=== PATIENT | female | born 1960 | race Caucasian/White ===

== ENCOUNTER 2023-06-10 04:41 | Emergency (ER) | payer OTHER, SELFPAY ==
[2023-06-10 04:41] VITALS: BMI 23.2
[2023-06-10 04:44] VITALS: BP 134/81
--- NOTE | 2023-06-10 05:09 | ED.GENMED ---
History of Present Illness
<BRIANNE Marie - Last Filed: 06/10/23 06:01>
General
Chief Complaint: Skin Problem
Source: patient
Exam Limitations: none
Time Seen by Provider: 06/10/23 04:59
Nursing documentation reviewed up to this point in time: agreed with
Travel History
Have you had any contact with someone who has COVID-19?: No
Do you have any symptoms of coronavirus? Fever > 100 degrees, chills, cough, shortness of breath, sore throat, loss of taste or smell, muscle aches, or headache?: No
History of Present Illness
History of Present Illness:
This is a 62 year old female with PMHx of HLD who presents to the ED w/ c/o scalp irritation after having her hair dyed x2 days ago. Patient reports she had a executive chairman come to her home who dyed her hair without a patch test. She is unaware of
the name of the hair dye that was used. She did not have any irritation at the time of the dye but reports itchiness to her scalp the night of. This worsened into the next day and she reports redness her frontal and posterior scalp. She is still
have itchiness and reports she has developed a headache. She also reports some left eye swelling. She denies SOB, CP, NVD, blurry vision or vision changes. Her only known allergies are penicillins and sulfa drugs. She denies any known allergies to
hair dye and reports having her hair dyed in the past without any problems.
Past History
<BRIANNE Marie - Last Filed: 06/10/23 06:01>
Past History
ED Past Medical History: None
Social History
Tobacco: Non-smoker
Family History
Family History: Negative Early CAD or CAD
Review of Systems
<BRIANNE Marie - Last Filed: 06/10/23 06:01>
Review of Systems
Allergies reviewed?: Yes
All Other Systems: Not applicable
Constitutional: Reports no symptoms
EENT: Reports no symptoms
Respiratory: Reports no symptoms
Cardiac: Reports no symptoms
ABD/GI: Reports no symptoms
: Reports no symptoms
Musculoskeletal: Reports no symptoms
Skin: Reports itching and other (Scalp irritation and redness)
Neurological: Reports headache
Endocrine: Reports no symptoms
Hematologic/Lymphatic: Reports no symptoms
Psychiatric: Reports no symptoms
Phy Exam
<BRIANNE Marie - Last Filed: 06/10/23 06:01>
General Physical Exam
General Presentation: well appearing and no apparent distress
General Skin: warm and dry
General Habitus: normal
General Mental: alert
General Hydration: appears well hydrated
ENT Exam
ENT Exam: EOMI, pharynx normal, neck supple and normocephalic
Eye Exam
Eye Exam: PERRL, cornea clear and conjunctiva normal
Cardiovascular Exam
Cardiovascular Exam: regular rate/rhythm, no edema, no murmur and normal peripheral pulses
Pulmonary Exam
Pulmonary Exam: lungs clear, no respiratory distress, no rales, no crackles, no rhonchi, no stridor, no wheezing and no cough
Gastrointestinal Exam
Gastrointestinal Exam: normal bowel sounds, non tender, soft, no organomegaly, no pulsatile mass and non distended
Neurological Exam
Neurological Exam: alert, oriented x3, no motor deficits and speech normal
Musculoskeletal Exam
Musculoskeletal Exam: full ROM and no edema
Skin Exam
Skin Exam: normal color, warm/dry, no rash, no petechia and other (Erythematous raised scales throughout scalp )
Psychiatric Exam
Psychiatric Exam: normal mood/affect
Course
<BRIANNE Marie - Last Filed: 06/10/23 06:01>
Orders/Labs/Results
Orders:
Orders
06/10/23 05:45
Diphenhydramine [Benadryl] 50 mg IM NOW STA
Mometasone [Elocon 0.1% Cream] See Dose Instructions TOPICAL DAILY STA
Prednisone [Deltasone] 50 mg PO NOW STA
Vital Signs
Initial and Last Documented VS:
Initial Vital Signs
Temp Pulse Resp BP Pulse Ox
98.4 F 92 16 134/81 99
06/10/23 04:44 06/10/23 04:44 06/10/23 04:44 06/10/23 04:44 06/10/23 04:44
Last Documented Vital Signs
Temp Pulse Resp BP Pulse Ox
98.4 F 92 16 134/81 99
06/10/23 04:44 06/10/23 04:44 06/10/23 04:44 06/10/23 04:44 06/10/23 04:44
<Minal Hanna DO - Last Filed: 06/10/23 06:42>
Orders/Labs/Results
Orders:
Orders
06/10/23 05:45
Diphenhydramine [Benadryl] 50 mg IM NOW STA
Mometasone [Elocon 0.1% Cream] See Dose Instructions TOPICAL DAILY STA
Prednisone [Deltasone] 50 mg PO NOW STA
Vital Signs
Initial and Last Documented VS:
Initial Vital Signs
Temp Pulse Resp BP Pulse Ox
98.4 F 92 16 134/81 99
06/10/23 04:44 06/10/23 04:44 06/10/23 04:44 06/10/23 04:44 06/10/23 04:44
Last Documented Vital Signs
Temp Pulse Resp BP Pulse Ox
98.4 F 92 16 134/81 99
06/10/23 04:44 06/10/23 04:44 06/10/23 04:44 06/10/23 04:44 06/10/23 04:44
<BRIANNE Marie - Last Filed: 06/10/23 06:01>
MDM/Problems Addressed
Differential Diagnosis Includes:
Allergic contact dermatitis due to hair dye vs seborrheic dermatitis
Less likely to be seborrheic dermatitis due to onset of symptoms after hair dye.
<BRIANNE Marie - Last Filed: 06/10/23 06:01>
*Critical Care Note
Total Time (30-74mins, 75-104mins- exclusive of procedures): Not Applicable
<Minal Hanna DO - Last Filed: 06/10/23 06:42>
*Pulse Oximetry
Patient hypoxic: no
ED Attending Note
<BRIANNE Marie - Last Filed: 06/10/23 06:01>
-
Portions of this chart may have been created with voice recognition software.� Occasional wrong word or��sound alike� substitutions may have occurred due to the inherent limitations of voice recognition software.
<Minal Hanna DO - Last Filed: 06/10/23 06:42>
ED Attending Note
Patient seen and examined by attending physician: Yes
I performed the substantive portion of visit, reviewed & personally made and approve the management plan that is documented in note by myself or IRWIN.: Yes
I performed a history and physical exam of patient and discussed management with resident, I reviewed resident's note and agree with documented findings and plan of care.: Yes
ED Attending Note:
62-year-old woman with history of hyperlipidemia presents with itchy scalp that began 1 day after her hair was dyed darker brown. She admits to similar but less significant itching of her scalp with similar hair dye used approximately 3 months ago.
Itchy scalp began initially at the nape of her neck but has progressed over the past 24 hours to involve her anterior forehead line more so on the left than the right and she awoke this morning concerned with some swelling left temporal and left
periorbital region. She denies itchy eyes nor difficulty with her vision. No tearing, no sore throat nor cough nor trouble breathing. She denies abdominal pain, no nausea or vomiting. No fever nor chills.
She is chronically maintained on low-dose amitriptyline 10 mg at bedtime as well as rosuvastatin 5 mg daily.
Yesterday she checked with her pharmacist and asked if she could take Benadryl which they recommended to hold off on and instead take Claritin which she has done so, thus far no improvement in symptoms.
GENERAL: 62-year-old woman appears her stated age, bright and alert, pleasant, appears in no acute distress.
EYE: anicteric. There is very minimal soft tissue swelling the left forehead, left inferior temporal region that extends to left lateral periorbital region without erythema, no angioedema. No focal tenderness to palpation. There is
well-demarcated erythematous patch that is slightly scaly along peripheral hairline globally but more pronounced left frontal to temporal region as well as posteriorly at the nape of her neck and mildly along the posterior auricular region. There
is no vesicles, no drainage.
NECK: Supple, nontender, no meningismus, no significant adenopathy.
ENT: posterior pharynx is clear, oral mucosa is moist. TM clear b/l, nares patent.
CARDIAC: Regular rate and rhythm. no murmur.
LUNGS: Clear breath sounds bilaterally, no acute respiratory distress, no wheezes/rales/rhonchi
ABDOMEN: Soft, nondistended, without focal tenderness
NEUROLOGICAL: Alert and oriented x3, no focal neuro deficits. Gait is gaffney and steady.
SKIN: Warm and dry, normal color. Good turgor.
MUSCULOSKELETAL: No C/C/E. peripheral pulses are full and equal b/l. No palpable tenderness.
PSYCH: Normal and appropriate interaction.
Patient presents with acute contact dermatitis to scalp related to hair dye application. There is no evidence of cellulitis, no evidence of generalized allergic reaction.
Recommend course of antihistamine as well as oral steroid and will add topical steroid to left frontal hairline as well as nape of the neck where she is most symptomatic/itchy.
Recommend she avoid this particular hair color going forward and if she decides to color her hair in the future to obtain a skin patch test prior to hair dye application.
Discharge Plan
Departure
Patient Disposition: Home (Routine Discharge)
Date of Disposition: 06/10/23
Time of Disposition: 06:38
Patient with high blood pressure during this ER visit?: No
Condition: Good
Discharge Problem:
Irritant contact dermatitis of scalp
Instructions: Contact Dermatitis (DC)
Prescriptions:
New
prednisone 10 mg Tablet
See Rx Instructions .ROUTE .COMPLEX Qty: 30 0RF
Rx Instructions:
Take By Mouth:
40 mg daily x3 days, 30 mg daily x3 days,
20 mg daily x3 days, 10 mg daily x3 days.
mometasone 0.1 % cream
1 applic topical DAILY PRN (Reason: skin irritation) Qty: 45 0RF
No Action
amitriptyline 10 mg Tablet
10 mg PO HS
rosuvastatin [Crestor] 5 mg Tablet
5 mg PO DAILY
Referrals:
Jeremías Harper MD [Family Provider] - Call in 1-3 days for appt
Activity Restrictions/Additional Instructions:
Continue Claritin once daily over the next 5 to 7 days.
Avoid harsh shampoos.
You may use thin film of mometasone cream to itchy scalp once daily as needed.
A prescription for prednisone taper has been prescribed as well.
If in the future you are planning to dye your hair, we recommend a skin patch test prior to hair dye application.
Interventions
Interventions:
*Risk Screen - Suicide Last Done: 06/10/23 04:44
*Neglect/Abuse Screening Last Done: 06/10/23 04:44
*ED COVID-19 Vaccine History Last Done: 06/10/23 04:44
Discharge Date and Time
Print Language: GUAMANIAN
[2023-06-10] MEDS: BENADRYL 50 MG IM (06:53)
[2023-06-10] MEDS: DELTASONE 50 MG PO (06:54)
[2023-06-10 06:55] VITALS: BP 121/80
[2023-06-10 07:33] VITALS: BP 121/80
== END 2023-06-10 07:20 | disposition home or self-care (01) ==
LOC: EMR 04:41
PROVIDERS: EMERGENCY PHYSICIAN Emergency Medicine; FAMILY PHYSICIAN Internal Medicine
DX: L24.9 Irritant contact dermatitis, unspecified cause (principal); E78.00 Pure hypercholesterolemia, unspecified; Z79.899 Other long term (current) drug therapy
CPT/HCPCS: 99282